=== PATIENT | female | born 1995 | race Caucasian/White ===

== ENCOUNTER 2020-06-22 23:01 | Emergency (ER) | payer OTHER, SELFPAY ==
[2020-06-22 23:08] VITALS: BP 124/69; PULSE 102; RESP 18; TEMP 37.2; O2SAT 97; BMI 24.4
--- NOTE | 2020-06-22 23:24 | ED_ITS ---
HPI - Psych General Chief Complaint: Psychiatric Symptoms Stated Complaint: Crisis Time Seen by Provider: 06/22/20 23:20 Source: patient Mode of arrival: ambulatory Limitations: no limitations History of Present Illness MD complaint: suicidal ideation, feels depressed and homicidal ideation Onset (ago): year(s) Duration: constant History of same: Yes Relieving factors: none Exacerbating factors: none Context: significant life stressor Associated psychiatric symptoms: depression, suicidal ideation and homicidal ideation Associated symptoms: denies other symptoms Treatments prior to arrival: none If self harm: admits thoughts of self harm Related Data Allergies Allergy/AdvReac Type Severity Reaction Status Date / Time acetaminophen [ACETAMINOPHEN] Allergy Severe AMS Unverified 01/28/20 16:54 Antihistamines - Alkylamine Allergy Severe AMS Unverified 01/28/20 16:54 [ANTIHISTAMINES - ALKYLAMINE] Review of Systems Review of Systems: Constitutional : No Fever, No Chills ENT/Mouth : No Ear Pain, No Nasal Congestion, No sore throat Eyes: No Eye Pain, No Swelling, No Redness Cardiovascular : No Chest Pain, No SOB Respiratory : No Cough, No Sputum, No Dyspnea Gastrointestinal : No Nausea, No Vomiting, No Diarrhea, No Hematochezia, No Melena Genitourinary : No Dysuria, No Urinary Frequency, No Hematuria Musculoskeletal : No Myalgias Skin : No Skin Lesions, No rash Neuro : No Weakness, No Numbness, No Paresthesias, No Dizziness, No Headache Psych : positive Anxiety, positive Depression, positive SI/HI Heme/Lymph: No Lymphadenopathy Endocrine : No Polyuria, No Polydipsia All other systems reviewed and are negative [facility] Past Medical History Attestation statement: The following information was validated with the patient. Medical History Anxiety Social History Social History (Updated 06/22/20 @ 23:24 by Shira Porter DO) Alcohol intake: former Smoking Status: Never smoker Physical Exam Vital Signs: Vital Signs: Last Vital Signs Temp 97.8 F 06/23/20 02:00 Pulse 95 06/23/20 02:00 Resp 16 06/23/20 02:00 BP 117/65 06/23/20 02:00 Pulse Ox 97 06/23/20 02:00 Body Mass Index 24.4 Appearance: Alert. Oriented X3. No acute distress. Anxious and tearful Eyes: Pupils equal, round and reactive to light. ENT: Pharynx normal. Neck: Normal inspection. Neck supple. CVS: Normal heart rate and rhythm. Pulses normal. Respiratory: No respiratory distress. Breath sounds normal. Abdomen: Soft and nontender. Skin: Skin warm and dry. Normal skin color. Normal skin turgor. Extremities: No lower extremity edema. No calf ttp Neuro: Oriented X 3. No motor deficit. No sensory deficit. CN 2 - 12 intact Psych: + anxiety and depression, + SI/HI Course Course Course Narrative: seen by CARE team likely OCD and PTSD - obsessive thoughts no real intent MDM - Psych MDM Narrative Medical decision making narrative: 24 yo female with anxiety comes in with c/o SI/HI - overwhelmed she is very anxious and appears scared, denies medical co mplaints - labs and CARE team consult ordered Lab Data Result diagrams: 06/22/20 23:49 06/22/20 23:49 Labs: Lab Results 06/22/20 06/22/20 06/22/20 Range/Units 23:48 23:48 23:48 WBC (4.8-10.8) X10*3/uL RBC (4.20-5.50) X10*6/uL Hgb (12.0-16.0) g/dl Hct (37-47) % MCV (80-98) fL MCH (27.0-33.0) pg MCHC (31.0-35.0) g/dl RDW (11.0-16.0) % Plt Count (160-400) X10*3/uL MPV (9.4-12.3) fL Immature Gran % (Auto) (0.0-0.4) % Neut % (Auto) (45-73) % Lymph % (Auto) (20-40) % [place] % (Auto) (2-11) % Eos % (Auto) (0-4) % Baso % (Auto) (0-2) % Lymph # (Auto) (1.2-4.9) X10*3/uL [place] # (Auto) (0.1-1.2) X10*3/uL Eos # (Auto) (0.0-0.4) X10*3/uL Baso # (Auto) (0.0-0.2) X10*3/uL Abs Immat Gran (auto) (0.00-0.03) X10*3/uL Absolute Neuts (auto) (2.0-8.3) X10*3/uL Absolute Nucleated RBC (0.0-0.012) X10*3/uL Nucleated RBC % (auto) (0.0-0.2) /100WBC Sodium (135-145) mmol/L Potassium (3.3-5.1) mmol/L Chloride (96-108) mmol/L Carbon Dioxide (22-29) mmol/L Anion Gap (12-20) BUN (9-16) mg/dL Creatinine (0.5-1.4) mg/dL Estim Creat Clear Calc Estimated GFR Random Glucose (60-115) mg/dL Calcium (8.4-10.2) mg/dL Total Bilirubin (0.0-1.0) mg/dL Direct Bilirubin (0.0-0.5) mg/dL AST (5-31) U/L ALT (0-31) U/L Alkaline Phosphatase (39-117) U/L Total Protein (6.5-8.0) g/dL Albumin (3.5-5.0) g/dL Urine Color YELLOW Urine Appearance CLEAR Urine pH 6.5 (5.0-8.0) Ur Specific [place] <= 1.005 (1.005-1.025) Urine Protein NEG (NEG-TRACE) MG/DL Urine Glucose (UA) NEG (NEG) MG/DL Urine Ketones 5 (NEG) MG/DL Urine Blood NEG (NEG) Urine Nitrite NEG (NEG) Ur Leukocyte Esterase NEG (NEG) Urine Test NEGATIVE (NEGATIVE) Urine Opiates Screen Not Detected (Not Detect) Ur Barbiturates Screen Not Detected (Not Detect) Ur Phencyclidine Scrn Not Detected (Not Detect) Ur Amphetamines Screen Not Detected (Not Detect) U Benzodiazepines Scrn Not Detected (Not Detect) Urine Cocaine Screen Not Detected (Not Detect) U Marijuana (THC) Screen Not Detected (Not Detect) Ethyl Alcohol < 10 mg/dL COVID-19 (BE[facility]) (Negative) COVID-19 Clin Com 06/22/20 06/22/20 06/22/20 Range/Units 23:49 23:49 23:49 WBC 8.7 (4.8-10.8) X10*3/uL RBC 4.45 (4.20-5.50) X10*6/uL Hgb 11.4 L (12.0-16.0) g/dl Hct 35.0 L (37-47) % MCV 78.7 L (80-98) fL MCH 25.6 L (27.0-33.0) pg MCHC 32.6 (31.0-35.0) g/dl RDW 13.4 (11.0-16.0) % Plt Count 209 (160-400) X10*3/uL MPV 10.8 (9.4-12.3) fL Immature Gran % (Auto) 0.3 (0.0-0.4) % Neut % (Auto) 75.2 H (45-73) % Lymph % (Auto) 15.8 L (20-40) % [place] % (Auto) 8.2 (2-11) % Eos % (Auto) 0.3 (0-4) % Baso % (Auto) 0.2 (0-2) % Lymph # (Auto) 1.4 (1.2-4.9) X10*3/uL [place] # (Auto) 0.7 (0.1-1.2) X10*3/uL Eos # (Auto) 0.0 (0.0-0.4) X10*3/uL Baso # (Auto) 0.0 (0.0-0.2) X10*3/uL Abs Immat Gran (auto) 0.03 (0.00-0.03) X10*3/uL Absolute Neuts (auto) 6.6 (2.0-8.3) X10*3/uL Absolute Nucleated RBC 0.000 (0.0-0.012) X10*3/uL Nucleated RBC % (auto) 0.0 (0.0-0.2) /100WBC Sodium 132 L (135-145) mmol/L Potassium 3.3 (3.3-5.1) mmol/L Chloride 101 (96-108) mmol/L Carbon Dioxide 22 (22-29) mmol/L Anion Gap 12 (12-20) BUN 9 (9-16) mg/dL Creatinine 0.69 (0.5-1.4) mg/dL Estim Creat Clear Calc 98.3 Estimated GFR > 60 Random Glucose 97 (60-115) mg/dL Calcium 8.7 (8.4-10.2) mg/dL Total Bilirubin 0.4 (0.0-1.0) mg/dL Direct Bilirubin 0.2 (0.0-0.5) mg/dL AST 13 (5-31) U/L ALT 14 (0-31) U/L Alkaline Phosphatase 49 (39-117) U/L Total Protein 6.5 (6.5-8.0) g/dL Albumin 4.0 (3.5-5.0) g/dL Urine Color Urine Appearance Urine pH (5.0-8.0) Ur Specific [place] (1.005-1.025) Urine Protein (NEG-TRACE) MG/DL Urine Glucose (UA) (NEG) MG/DL Urine Ketones (NEG) MG/DL Urine Blood (NEG) Urine Nitrite (NEG) Ur Leukocyte Esterase (NEG) Urine Test (NEGATIVE) Urine Opiates Screen (Not Detect) Ur Barbiturates Screen (Not Detect) Ur Phencyclidine Scrn (Not Detect) Ur Amphetamines Screen (Not Detect) U Benzodiazepines Scrn (Not Detect) Urine Cocaine Screen (Not Detect) U Marijuana (THC) Screen (Not Detect) Ethyl Alcohol mg/dL COVID-19 ([facility]) Negative (Negative) COVID-19 Clin Com See Note Discharge Plan Discharge Clinical Impression: Chronic post-traumatic stress disorder, Anxiety Patient Disposition: Home, Self-Care Instructions: Post Traumatic Stress Disorder (ED), Anxiety (ED) Additional Instructions: return to ED for any worsening symptoms or concerns please follow up with partial program Interventions: ED Discharge Assessment Last Done: 06/23/20 02:22 Discharge Date/Time: 06/23/20 02:28
[2020-06-22 23:43] VITALS: BP 111/64; PULSE 99; RESP 16; TEMP 36.7; O2SAT 98
[2020-06-23] LABS: MANUAL DIFF FLAG NO
[2020-06-23 00:02] LABS: Basophils Percent Auto 0.2 % (0-2); Eosinophils Percent Auto 0.3 % (0-4); Hemoglobin 11.4 g/dl (12.0-16.0); Imm Gran Abs Auto 0.03 X10*3/uL (0.00-0.03); Imm Gran Pct Auto 0.3 % (0.0-0.4); Lymphocytes Absolute Auto 1.4 X10*3/uL (1.2-4.9); Lymphocytes Percent Auto 15.8 % (20-40); Mean Corpuscular HGB Conc 32.6 g/dl (31.0-35.0); Mean Corpuscular Hemoglobin 25.6 pg (27.0-33.0); Mean Corpuscular Volume 78.7 fL (80-98); Mean Platelet Volume 10.8 fL (9.4-12.3); Monocytes Absolute Auto 0.7 X10*3/uL (0.1-1.2); Monocytes Percent Auto 8.2 % (2-11); Neutrophils Absolute Auto 6.6 X10*3/uL (2.0-8.3); Neutrophils Percent Auto 75.2 % (45-73); Platelet Count 209 X10*3/uL (160-400); Red Blood Count 4.45 X10*6/uL (4.20-5.50); Red Cell Distribution Width 13.4 % (11.0-16.0); White Blood Count 8.7 X10*3/uL (4.8-10.8)
[2020-06-23 00:10] LABS: Glucose Urine UA NEG (NEG); Leukocyte Esterase Urine NEG (NEG); Nitrite Urine NEG (NEG); PH 6.5 (5.0-8.0); Specific Gravity - Urine <= 1.005 (1.005-1.025); Urine Blood NEG (NEG); Urine Ketones 5 MG/DL (NEG); Urine Protein NEG (NEG-TRACE)
[2020-06-23 00:15] LABS: Appearance Urine CLEAR; Color Urine YELLOW
[2020-06-23 00:16] LABS: UPreg QC Valid YES; Urine Pregnancy NEGATIVE (NEGATIVE)
[2020-06-23 00:18] LABS: COVID-19 Test Negative (Negative); IDNOW Serial# 9DD0AD1C
[2020-06-23 00:21] LABS: Ethanol < 10 mg/dL
[2020-06-23 00:25] LABS: Alanine Aminotransferase 14 U/L (0-31); Alkaline Phosphatase 49 U/L (39-117); Anion Gap 12 (12-20); Aspartate Amino Transferase 13 U/L (5-31); Bilirubin Direct 0.2 mg/dL (0.0-0.5); Bilirubin Total 0.4 mg/dL (0.0-1.0); Blood Urea Nitrogen 9 mg/dL (9-16); Calcium 8.7 mg/dL (8.4-10.2); Carbon Dioxide 22 mmol/L (22-29); Chloride 101 mmol/L (96-108); Creatinine Clr Calc Pharmacy 98.3; Estimated Glomerular Filt Rate > 60; Glucose Random 97 mg/dL (60-115); Potassium 3.3 mmol/L (3.3-5.1); Sodium 132 mmol/L (135-145); Total Protein 6.5 g/dL (6.5-8.0)
[2020-06-23 00:36] LABS: Amphetamine Screen Urine Not Detected (Not Detect); Barbiturates, Urine Not Detected (Not Detect); Benzodiazepines Screen Urine Not Detected (Not Detect); Cannabinoid Screen Urine Not Detected (Not Detect); Cocaine Screen Urine Not Detected (Not Detect); Opiate Screen Urine Not Detected (Not Detect); Phencyclidine Screen Urine Not Detected (Not Detect)
[2020-06-23 02:00] VITALS: BP 117/65; PULSE 95; RESP 16; TEMP 36.6; O2SAT 97
--- NOTE | 2020-06-23 14:34 | MHC.CARE ---
t/w called pt as a follow up per CARE pass along to help with PHP referral. Pt has intake07/06/20.
== END 2020-06-23 02:28 | disposition home or self-care (01) ==
PROVIDERS: Emergency Provider Emergency Medicine; PCP Nurse Practitioner Primary Care
DX: F43.12 Post-traumatic stress disorder, chronic (principal); F41.9 Anxiety disorder, unspecified; Z20.822 Contact with and (suspected) exposure to COVID-19
CPT/HCPCS: 36415; 80048; 80076; 80307; 80320; 81003; 81025; 85025; 87635; 99284

== ENCOUNTER 2020-07-22 10:15 | Outpatient (RCR) | payer OTHER, SELFPAY ==
[2020-07-07 12:49] VITALS: BMI 24.4
--- NOTE | 2020-07-07 13:06 | PC.ADMIT ---
Patient is a 24 year old female who was referred by the Care Team d/t increase in depression with passive SI and thoughts to hurt others and herself however patient reports no plan or intent to harm others or herself. She stated she experiences random intrusive thoughts to hurt others since the beginning of April however the thoughts have lessoned since starting Lexapro. Stated she has not acted on these thoughts, no hx of violence. Stated she gets these thoughts on occasion. Patient reports many life changes including recently moving in with her boyfriend. Patient also feeling isolated from her friends and is working from home feeling further isolation as a result d/t the pandemic. Patient reports she is now working part-time d/t her symptoms and is also struggling with PTSD sxs. Patient presents with depressed mood and anxious affect. Denied current SI or HI. Asked if she was feeling unsafe who could she reach out to and she stated her mother, father, or boyfriend. Feels she has much support. Patient gave verbal permission to email her a copy of her safety plan. Medications reconciled with patient and patient's pharmacy. Patient reports taking her medications as prescribed. Patient reports severe allergy to Antihistimines and is prescribed hydroxyzine. Patient reports that she has been taking Hydroxyzine since age 13 and denied any reaction to this medication. She is prescribed Hydroxyzine 12.5 mg daily which she takes PRN for anxiety however she stated Lorazepam works better.
--- NOTE | 2020-07-07 15:00 | PC.NURSE ---
Case opened in treatment team
--- NOTE | 2020-07-07 15:26 | PC.NURSE ---
I called and left a message for the client therapist JAMA Rodriguez clients starting the program and tentative dc date of 07/22/20
--- NOTE | 2020-07-07 19:32 | HO.PS.ADMBH ---
HPI Chief Complaint: depression Sources of Information: patient interviewed and chart reviewed HPI Narrative: 24 yo female, admitted per CARE team referral for sx of intrusive throughts, anxiety, panic and thoughts of lyol-kaal-[id number] have increased since Mar 2020. Pt reports intrusive obsessive thoughts with increase in anxiety. She is in PHP as she would like a better understading of these symptoms and more stability. Reports some compulsions for most of her life-pen clicking/tapping/needs for items to be in certain orders/ neat freak / compulsive in that I seek reassurance all of the time. Reports thoughts to hit stab and kill others with absolutely no plan or intent but having random thoughts present in her mind. Denies history of these thoughts or any actions. Denies hx of violence. 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 Possible precipitants include pandemic changes, quarantice restrictions , moved in with boyfriend to parents basement apartment recently. Feeling the world has changed without her participation. Past Psychiatric History: IP: Denies PHP:Denies Trials: None but current regime OP: PCP is her prescriber, Eleanor Krishnamurthy psychotherapy Medical Evaluation Reviewed: Yes medically cleared by Dr. Porter Sodium 132. [facility] Medical History (Updated 07/07/20 @ 19:55 by Rachael Ferreira APRN) Anxiety Eczema Endometriosis OCD (obsessive compulsive disorder) PTSD (post-traumatic stress disorder) Narrative: Concussion s/p fall age 14 (fell in shower) Surgical History Hx of tonsillectomy Family History: anxiety Social History: Lives with boyfriend in basement apartment of parents home. 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 Substance History: Cannabis- last used December 2019 Alcohol 1-3 servings per week Trauma History: Yes- does have some traumatic memory via olfactory sensations at times. Diagnostics Vital Signs (24Hr): Body Mass Index 24.4 Meds/Allergies Meds Narrative: -Lexapro 20 mg daily -Trazodone 50 mg hs prn -Ativan 0.5 mg prn - control Allergies Allergies Allergy/AdvReac Type Severity Reaction Status Date / Time acetaminophen [ACETAMINOPHEN] Allergy Severe AMS Unverified 01/28/20 16:54 Antihistamines - Alkylamine Allergy Severe AMS Unverified 01/28/20 16:54 [ANTIHISTAMINES - ALKYLAMINE] Mental Status Exam Mental Status Exam Patient Appearance: Appropriate Patient Orientation: Person, Place, Time and Situation Level of Consciousness: Awake and Alert Patient Behavior: Appropriate, Talkative and Cooperative Mood Description: Anxious Affect Description: Flat Patient Cognition Impaired: No Ability to Follow Directions: Good Speech Pattern: Clear and Spontaneous Speech Memory Description: Intact Hallucinations: Olfactory (some trauma related sx where a smell gets stuck in my nose at times ) Delusions: Not Present Thought Process: Intact Thought Content: positive for Linear, positive for Logical, positive for Suicidal Ideation (denies SI plan or intent) and positive for Homicidal Ideation (denies HI plan or intent) Depressive Symptoms: Increased Anxiety, Difficulty Sleeping and Unhappiness Judgement: Good Assessment & Plan Assessment & Plan (1) PTSD (post-traumatic stress disorder): Status: Acute Code(s): F43.10 - Post-traumatic stress disorder, unspecified (2) OCD (obsessive compulsive disorder): Status: Acute Code(s): F42.9 - Obsessive-compulsive disorder, unspecified Assessment and Plan: -Discussed with pt adding low dose Abilify or Rexulti to assist Escitalopram in efficacy. She will research (sites recommended and be in contact for further discussion). The goal being improved mgt of intrusive thoughts. Certification I certify that partial hospital treatment is medically necessary due to the symptoms and problems resulting from the patient's mental illness and the failure to treat the patient at the partial hospital level of care would likely result in the patient requiring inpatient psychiatric care which could not be prevented at a less intensive level of care. Telehealth Telehealth Location of provider rendering services: practice address Location of patient: address on file Patient Identification confirmed using: Name, : Yes Telehealth method: video Patient verbally consented to treatment: Yes Patient verbally consented to billing insurance company: Yes Patient informed of any privacy concerns related to visit: Yes Time spent with patient (mins): 35
--- NOTE | 2020-07-15 13:08 | HO.PHPPROGNO ---
Subjective Subjective Date of Service: 07/15/20 Reason For Visit: depression Interim History: Pt reports groups have been very helpful in that she has been able to normalize her experience by hearing others. She reports sleeping very well. . She reports anxiety has decfreased as well as symptoms of depression including feeling more hopeful. She denies suicidal or homicidal ideation. Last meeting with MADISYN Medina pt had discussed with considering abilify or rexulti but pt appears stable with current medications. Medication Compliance: Yes Side effects from medications: No Attending Groups: Yes Review of Systems Review of Systems Yes all other systems are reviewed and are negative Mental Status Exam Mental Status Exam Narrative: Appearance: casually groomed, good hygine in nAD Behavior: calm, cooperative Psychomotor: no agitation or retardation noted Speech: clear, normal rate/rhythm/volume, spotnaneous TP: linear TC: no signs of psychosis, future oriented. Mood: good Affect: congruent, bright, non labile VH/AH: none SI: none HI: none Insight/judgment: fair x 2. Memory/cog: alert, oriented x 3. grossly intact to conversational testing. Diagnostics Vital Signs (24Hr): Body Mass Index 24.4 Assessment & Plan Assessment & Plan (1) PTSD (post-traumatic stress disorder): Status: Acute Code(s): F43.10 - Post-traumatic stress disorder, unspecified Assessment and Plan: continue current medications (2) OCD (obsessive compulsive disorder): Status: Acute Code(s): F42.9 - Obsessive-compulsive disorder, unspecified Assessment and Plan: continue current medications. Certification I certify that partial hospital treatment is medically necessary due to the symptoms and problems resulting from the patient's mental illness and the failure to treat the patient at the partial hospital level of care would likely result in the patient requiring inpatient psychiatric care which could not be prevented at a less intensive level of care. Greater than 50% of the session was spent on counseling and/or coordination of care Discharge Plan Discharge Attending provider: Elias Torres Medications: No Action multivitamin Tablet 1 tab PO DAILY RF: 0 trazodone 50 mg Tablet 50 mg PO BEDTIME RF: 0 levonorgestrel-ethinyl estrad 0.15-0.03 mg Tablet 1 tab PO DAILY RF: 0 lorazepam 0.5 mg Tablet 0.5 mg PO Q6H PRN (Reason: Anxiety) RF: 0 escitalopram oxalate 10 mg Tablet 20 mg PO BEDTIME RF: 0 hydroxyzine HCl 25 mg Tablet 12.5 mg PO DAILY PRN (Reason: Anxiety) RF: 0 Telehealth Telehealth Location of provider rendering services: practice address Location of patient: address on file Patient Identification confirmed using: Name, : Yes Telehealth method: video Patient verbally consented to treatment: Yes Patient verbally consented to billing insurance company: Yes Patient informed of any privacy concerns related to visit: Yes Time spent with patient (mins): 15
--- NOTE | 2020-07-20 16:43 | HO.PHPPROGNO ---
Subjective Subjective Date of Service: 07/20/20 Reason For Visit: depression Interim History: Pt reports anxiety has decreased, she denies depressive sx and has been feeling well. She denies SE. Sleep is WNL as is appetite she reports. She finds regime to be effective. Medication Compliance: Yes Side effects from medications: No Attending Groups: Yes Review of Systems Review of Systems Yes all other systems are reviewed and are negative (denies current sx) Psychiatric: Reports anxiety (decreasing) and Reports suicidal ideation (denies) Mental Status Exam Mental Status Exam Patient Appearance: Appropriate Patient Orientation: Person, Place, Time and Situation Level of Consciousness: Awake and Alert Patient Behavior: Appropriate and Talkative Mood Description: Appropriate and Anxious (mild) Affect Description: Anxious (mild) Patient Cognition Impaired: No Ability to Follow Directions: Good Speech Pattern: Spontaneous Speech Memory Description: Intact Hallucinations: None Delusions: Not Present Thought Process: Intact Thought Content: positive for Intact Depressive Symptoms: Increased Anxiety (mild) and Thoughts of /Suicide (denies SI plan or intent) Judgement: Good Diagnostics Vital Signs (24Hr): Body Mass Index 24.4 Assessment & Plan Assessment & Plan (1) PTSD (post-traumatic stress disorder): Status: Acute Code(s): F43.10 - Post-traumatic stress disorder, unspecified Assessment and Plan: -Continue current plan (2) OCD (obsessive compulsive disorder): Status: Acute Code(s): F42.9 - Obsessive-compulsive disorder, unspecified Certification I certify that partial hospital treatment is medically necessary due to the symptoms and problems resulting from the patient's mental illness and the failure to treat the patient at the partial hospital level of care would likely result in the patient requiring inpatient psychiatric care which could not be prevented at a less intensive level of care. Greater than 50% of the session was spent on counseling and/or coordination of care Discharge Plan Discharge Attending provider: Elias Torres Medications: No Action multivitamin Tablet 1 tab PO DAILY RF: 0 trazodone 50 mg Tablet 50 mg PO BEDTIME RF: 0 levonorgestrel-ethinyl estrad 0.15-0.03 mg Tablet 1 tab PO DAILY RF: 0 lorazepam 0.5 mg Tablet 0.5 mg PO Q6H PRN (Reason: Anxiety) RF: 0 escitalopram oxalate 10 mg Tablet 20 mg PO BEDTIME RF: 0 hydroxyzine HCl 25 mg Tablet 12.5 mg PO DAILY PRN (Reason: Anxiety) RF: 0 Telehealth Telehealth Location of provider rendering services: practice address Location of patient: address on file Patient Identification confirmed using: Name, : Yes Telehealth method: video Patient verbally consented to treatment: Yes Patient verbally consented to billing insurance company: Yes Patient informed of any privacy concerns related to visit: Yes Time spent with patient (mins): 15
--- NOTE | 2020-07-22 14:20 | PC.NURSE ---
case closed in treatment team
--- NOTE | 2020-07-25 08:24 | PC.NURSE ---
called clients therapist Eleanor Krishnamurthy and left a message that client has discharged from the program
== END 2020-07-22 23:55 | disposition home or self-care (01) ==
LOC: HO.PHPA 10:15
PROVIDERS: Visit Provider Psychiatry & Neurology Psychiatry
DX: F43.10 Post-traumatic stress disorder, unspecified (principal); F42.9 Obsessive-compulsive disorder, unspecified
CPT/HCPCS: 90791; 90853